=== PATIENT | female | born 1945 | race Caucasian/White ===

== ENCOUNTER 2020-09-05 09:16 | Outpatient (CLI) | payer MEDICARE, OTHER, SELFPAY ==
--- NOTE | ~2020-09-05 | US_ITS ---
EXAMINATION: US aorta DATE: 09/05/2020 09:44 INDICATION: Pulsatile abdominal mass. TECHNIQUE: Grayscale, color Doppler, and pulsed Doppler images of the aorta and common iliac arteries were obtained. COMPARISON: None. FINDINGS: The proximal aorta measures 2.5 cm.. The mid aorta measures 1.5 cm. The distal aorta measures 1.2 cm. The right common iliac artery measures 8 mm. The left common iliac artery measures 8 mm. IMPRESSION: 1. Normal abdominal aorta. Reviewed, dictated and finalized at location B. SWITCHMAN IMPRESSION: 1. Normal abdominal aorta.
== END 2020-09-05 09:17 | disposition home or self-care (01) ==
PROVIDERS: PCP Family Medicine; Visit Provider Family Medicine
DX: R19.8 Other specified symptoms and signs involving the digestive system and abdomen (principal); R19.00 Intra-abdominal and pelvic swelling, mass and lump, unspecified site
CPT/HCPCS: 76775

== ENCOUNTER 2022-03-22 09:16 | Outpatient (CLI) | payer MEDICARE, OTHER, SELFPAY ==
[2022-03-22 20:02] LABS: Alanine Aminotransferase 17 U/L (6-35); Albumin Level 4.8 g/dL (3.5-5.1); Alkaline Phosphatase 66 U/L (38-126); Anion Gap 11 mmol/L (8-16); Aspartate Amino Transferase 42 U/L (14-36); Bilirubin,Total 0.4 mg/dL (0.2-1.3); Blood Urea Nitrogen 18 mg/dL (7-17); Calcium 10.1 mg/dL (8.4-10.2); Carbon Dioxide 28 mmol/L (22-30); Chloride 99 mmol/L (98-107); Estimated Glomerular Filt Rate 54; Glucose 105 mg/dL (65-110); Potassium 4.3 mmol/L (3.4-5.0); Sodium 138 mmol/L (137-145)
== END 2022-03-22 09:17 | disposition home or self-care (01) ==
LOC: ANHGOSHLAB 09:20
PROVIDERS: PCP Family Medicine; Visit Provider Family Medicine
DX: I12.9 Hypertensive chronic kidney disease with stage 1 through stage 4 chronic kidney disease, or unspecified chronic kidney disease (principal); N18.30 Chronic kidney disease, stage 3 unspecified
CPT/HCPCS: 36415; 80053

== ENCOUNTER 2022-09-27 09:35 | Outpatient (CLI) | payer MEDICARE, OTHER, SELFPAY ==
[2022-09-27 18:45] LABS: Basophils Absolute Auto 0.1 K/mm3 (0.0-0.1); Basophils Percent Auto 1.4 % (0.2-1.2); Eosinophils Absolute Auto 0.1 K/mm3 (0-0.3); Eosinophils Percent Auto 2.2 % (0-4.4); Hematocrit 41.2 % (37.0-47.0); Immature Granulocyte Absolute 0.01 K/mm3 (0.00-0.031); Immature Granulocyte Percent A 0.2 % (0-0.5); Lymphocytes Absolute Auto 1.12 K/mm3 (0.9-3.2); Lymphocytes Percent Auto 20.3 % (18.3-44.2); Mean Corpuscular HGB Conc 31.6 g/dl (32-36); Mean Corpuscular Hemoglobin 31.6 pg (26-34); Mean Corpuscular Volume 100.2 fl (80-100); Mean Platelet Volume 10.6 fl (7.4-10.4); Monocytes Absolute Auto 0.5 K/mm3 (0.1-0.6); Monocytes Percent Auto 8.7 % (2.6-8.5); Neutrophils Absolute Auto 3.7 K/mm3 (1.3-6.7); Neutrophils Percent Auto 67.2 % (45.5-73.1); Platelet Count Result 314 k/mm3 (150-375); Red Blood Count 4.11 M/mm3 (4.2-5.4); Red Cell Distribution Width 13.2 % (11.5-14.5); White Blood Count 5.5 K/mm3 (4.5-10.0)
[2022-09-27 19:02] LABS: Vitamin D 25 Hydroxy 49.1 ng/mL
[2022-09-27 19:32] LABS: Alanine Aminotransferase 21 U/L (6-35); Albumin Level 4.9 g/dL (3.5-5.1); Alkaline Phosphatase 79 U/L (38-126); Anion Gap 11 mmol/L (8-16); Aspartate Amino Transferase 26 U/L (14-36); Bilirubin,Total 0.5 mg/dL (0.2-1.3); Blood Urea Nitrogen 16 mg/dL (7-17); Calcium 10.3 mg/dL (8.4-10.2); Carbon Dioxide 28 mmol/L (22-30); Chloride 102 mmol/L (98-107); Cholesterol 215 mg/dL (0-200); Estimated Glomerular Filt Rate 54; Glucose 110 mg/dL (65-110); HDL Direct 66 mg/dL; Potassium 4.1 mmol/L (3.4-5.0); Sodium 141 mmol/L (137-145); Triglycerides 128 mg/dL (<150)
[2022-09-27 19:43] LABS: LDL Cholesterol Direct 92 mg/dL
== END 2022-09-27 09:36 | disposition home or self-care (01) ==
LOC: ANHGOSHLAB 09:36
PROVIDERS: PCP Family Medicine; Visit Provider Nurse Practitioner Family
DX: I10 Essential (primary) hypertension (principal); E55.9 Vitamin D deficiency, unspecified
CPT/HCPCS: 36415; 80053; 80061; 82306; 84443; 85025

== ENCOUNTER 2023-03-19 08:46 | Outpatient (CLI) | payer MEDICARE, OTHER, SELFPAY ==
--- NOTE | ~2023-03-19 | DEXA_ITS ---
Bone Density Report Name: GAL JIMENEZ Age: 77 Sex: Female Ethnicity: White Date of : 1945 Indication: postmenopausal; screening for osteoporosis; Referring Provider: TOAN, HO Rich Study: Bone densitometry was performed. Exam Date: March 19, 2023 Accession number: [id number] Bone Density: Region BMD T-score Z-score Classification AP Spine(L1-L4) 1.076 0.3 2.8 Normal Femoral Neck (Left) 0.694 -1.4 0.8 Osteopenia Total Hip (Left) 0.843 -0.8 1.2 Normal Femoral Neck (Right) 0.679 -1.5 0.7 Osteopenia Total Hip (Right) 0.814 -1.1 0.9 Osteopenia Total Hip Mean 0.828 -1.0 1.1 Normal World Health Organization criteria for BMD impression classify patients as: Normal (T-score at or above -1.0), Osteopenia (T-score between -1.0 and -2.5), or Osteoporosis (T-score at or below -2.5). 10-year Fracture Risk(1): Major Osteoporotic Fracture 12% Hip Fracture 2.8% Reported Risk Factors: [place] (), Neck BMD=0.679, BMI=22.4 (1) FRAX(R) Version 3.08. Fracture probability calculated for an untreated patient. Fracture probability may be lower if the patient has received treatment. Previous Exams: Region Exam Age BMD T-score BMD Change BMD Change Date g/cm2 vs Baseline vs Previous AP Spine (L1-L4) 03/19/2023 77 1.076 0.3 0.003 (0.3%)# 0.003 (0.3%)# 04/24/2019 73 1.073 0.2 Total Hip(Left) 03/19/2023 77 0.843 -0.8 -0.059 (-6.6%) -0.059 (-6.6%) 04/24/2019 73 0.902 -0.3 Total Hip(Right) 03/19/2023 77 0.814 -1.1 -0.065 (-7.4%) -0.065 (-7.4%) 04/24/2019 73 0.879 -0.5 *Denotes significance at 95% confidence level, LSC for AP Spine = 0.022 g/cm2, LSC for Total Hip = 0.027 g/cm2 # Denotes dissimilar scan types or analysis methods Clinical Information Provided by Patient: Has used the following medications: Vitamin D, Calcium Patient maximum height was 67 Menopause Age: 51 Drinks caffeinated beverages Onset of menses at age 12 Number of children 3 Impression: The patient has low bone mass, based on the Right Femoral Neck T-score. The patient has an estimated ten-year risk of hip fracture of 2.8% and an estimated ten-year risk of major fracture of 12%, based on the WHO FRAX algorithm. No significant bone loss was observed. Discussion: BONE DENSITY IS LOW AT ONE OR MORE SKELETAL SITES. This patient's lowest T-score is low at one or more skeletal sites. It meets the World Health Organization's (
== END 2023-03-19 08:47 | disposition home or self-care (01) ==
LOC: ANHIMG 08:47
PROVIDERS: PCP Family Medicine; Visit Provider Nurse Practitioner Family
DX: Z78.0 Asymptomatic menopausal state (principal); M85.88 Other specified disorders of bone density and structure, other site
CPT/HCPCS: 77080

== ENCOUNTER 2023-04-04 10:04 | Outpatient (CLI) | payer MEDICARE, OTHER, SELFPAY ==
[2023-04-04 19:27] LABS: Alanine Aminotransferase 19 U/L (6-35); Albumin Level 4.4 g/dL (3.5-5.1); Alkaline Phosphatase 68 U/L (38-126); Anion Gap 5 mmol/L (8-16); Aspartate Amino Transferase 27 U/L (14-36); Bilirubin,Total 0.5 mg/dL (0.2-1.3); Blood Urea Nitrogen 15 mg/dL (7-17); Calcium 9.9 mg/dL (8.4-10.2); Carbon Dioxide 33 mmol/L (22-30); Chloride 103 mmol/L (98-107); Estimated Glomerular Filt Rate 54; Glucose 102 mg/dL (65-110); Potassium 4.4 mmol/L (3.4-5.0); Sodium 141 mmol/L (137-145)
== END 2023-04-04 10:05 | disposition home or self-care (01) ==
PROVIDERS: PCP Family Medicine; Visit Provider Family Medicine
DX: Z51.81 Encounter for therapeutic drug level monitoring (principal); Z79.899 Other long term (current) drug therapy; I10 Essential (primary) hypertension
CPT/HCPCS: 36415; 80053

== ENCOUNTER 2023-10-03 09:53 | Outpatient (CLI) | payer MEDICARE, OTHER, SELFPAY ==
[2023-10-03 12:17] LABS: Basophils Absolute Auto 0.1 K/mm3 (0.0-0.1); Basophils Percent Auto 0.9 % (0.2-1.2); Eosinophils Absolute Auto 0.1 K/mm3 (0-0.3); Eosinophils Percent Auto 2.4 % (0-4.4); Hematocrit 40.7 % (37.0-47.0); Hemoglobin 12.8 g/dL (12.0-15.0); Immature Granulocyte Absolute 0.01 K/mm3 (0.00-0.031); Immature Granulocyte Percent A 0.2 % (0-0.5); Lymphocytes Absolute Auto 0.96 K/mm3 (0.9-3.2); Lymphocytes Percent Auto 16.7 % (18.3-44.2); Mean Corpuscular HGB Conc 31.4 g/dl (32-36); Mean Corpuscular Hemoglobin 31.1 pg (26-34); Mean Platelet Volume 11.1 fl (7.4-10.4); Monocytes Absolute Auto 0.4 K/mm3 (0.1-0.6); Monocytes Percent Auto 6.4 % (2.6-8.5); Neutrophils Absolute Auto 4.2 K/mm3 (1.3-6.7); Neutrophils Percent Auto 73.4 % (45.5-73.1); Platelet Count Result 311 k/mm3 (150-375); Red Blood Count 4.11 M/mm3 (4.2-5.4); Red Cell Distribution Width 13.1 % (11.5-14.5); White Blood Count 5.8 K/mm3 (4.5-10.0)
[2023-10-03 12:31] LABS: Alanine Aminotransferase 16 U/L (6-35); Albumin Level 4.7 g/dL (3.5-5.1); Alkaline Phosphatase 76 U/L (38-126); Anion Gap 9 mmol/L (4-12); Aspartate Amino Transferase 44 U/L (14-36); Bilirubin,Total 0.6 mg/dL (0.2-1.3); Blood Urea Nitrogen 17 mg/dL (7-17); Calcium 10.5 mg/dL (8.4-10.2); Carbon Dioxide 28 mmol/L (22-30); Chloride 102 mmol/L (98-107); Cholesterol 177 mg/dL (0-200); Estimated Glomerular Filt Rate 54; Glucose 125 mg/dL (65-110); HDL Direct 61 mg/dL; Potassium 4.1 mmol/L (3.4-5.0); Sodium 139 mmol/L (137-145); Triglycerides 118 mg/dL (<150)
[2023-10-03 12:44] LABS: LDL Cholesterol Direct 84 mg/dL
[2023-10-03 12:56] LABS: Vitamin D 25 Hydroxy 55.9 ng/mL
[2023-10-03 13:30] LABS: Hemoglobin A1C 6.2 % (<5.7)
== END 2023-10-03 09:54 | disposition home or self-care (01) ==
LOC: ANHGOSHLAB 09:55
PROVIDERS: PCP Family Medicine; Visit Provider Family Medicine
DX: E55.9 Vitamin D deficiency, unspecified (principal); E78.5 Hyperlipidemia, unspecified; M85.80 Other specified disorders of bone density and structure, unspecified site; E53.8 Deficiency of other specified B group vitamins; R73.9 Hyperglycemia, unspecified; I10 Essential (primary) hypertension
CPT/HCPCS: 36415; 80053; 80061; 82306; 82607; 83036; 84443; 85025

== ENCOUNTER 2023-12-10 09:45 | Outpatient (CLI) | payer MEDICARE, OTHER, SELFPAY ==
--- NOTE | ~2023-12-10 | MM_ITS ---
EXAMINATION: MM screening myra BI w antonio HISTORY: Screening TECHNIQUE: Craniocaudal and mediolateral oblique 3-D tomosynthesis images were obtained and synthetic 2-D images were generated. CAD analysis was submitted and interpreted. COMPARISON: No prior mammogram is available for comparison at this institution. BREAST PARENCHYMAL COMPOSITION: Dense: The breasts are heterogeneously dense, which may obscure small masses FINDINGS: There is no evidence of suspicious mass, calcification, or architectural distortion to sugg est malignancy in either breast. There has been no suspicious interval change. IMPRESSION: 1. No mammographic evidence of malignancy. 2. Recommend routine screening mammography in one year. BI-RADS Category 1: Negative Reviewed, dictated and finalized at location B.
== END 2023-12-10 09:46 | disposition home or self-care (01) ==
PROVIDERS: PCP Family Medicine; Visit Provider Family Medicine
DX: Z12.31 Encounter for screening mammogram for malignant neoplasm of breast (principal)
CPT/HCPCS: 77063; 77067

== ENCOUNTER 2024-03-30 09:45 | Outpatient (CLI) | payer MEDICARE, OTHER, SELFPAY ==
[2024-03-30 14:55] LABS: Alanine Aminotransferase 16 U/L (6-35); Albumin Level 4.6 g/dL (3.5-5.1); Alkaline Phosphatase 63 U/L (38-126); Anion Gap 10 mmol/L (4-12); Aspartate Amino Transferase 34 U/L (14-36); Bilirubin,Total 0.6 mg/dL (0.2-1.3); Blood Urea Nitrogen 19 mg/dL (7-17); Carbon Dioxide 29 mmol/L (22-30); Chloride 98 mmol/L (98-107); Estimated Glomerular Filt Rate 53; Glucose 89 mg/dL (65-110); Potassium 4.2 mmol/L (3.4-5.0); Sodium 137 mmol/L (137-145)
[2024-03-30 15:47] LABS: Hemoglobin A1C 6.3 % (<5.7)
== END 2024-03-30 09:46 | disposition home or self-care (01) ==
LOC: ANHGOSHLAB 09:46
PROVIDERS: PCP Family Medicine; Visit Provider Family Medicine
DX: I10 Essential (primary) hypertension (principal); R73.03 Prediabetes
CPT/HCPCS: 36415; 80053; 83036

== ENCOUNTER 2024-10-06 09:28 | Outpatient (CLI) | payer MEDICARE, OTHER, SELFPAY ==
--- OUTSIDE RECORDS SUMMARY | 2024-10-06 10:06 | XMS_ITS | Clinical Summary ---
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 Gender Identity Not on file Sexual Orientation Not on file Occupation Industry Job Start Date Job End Date Not on file Not on file Not on file Not on file Plan of Treatment Health Maintenance Due Date Last Done Comments DTAP/TDAP/TD VACCINES (1 - Tdap) 12/09/1963 PNEUMOCOCCAL VACCINE 50+ YEARS (1 of 1 - PCV) 12/08/18 95 ZOSTER VACCINE (1 of 2) 1994 RSV VACCINE (60+ or ) (1 - 1-dose 75+ series) 12/09/2019 INFLUENZA VACCINE (#1) 2024 OSTEOPOROSIS SCREENING Completed 01/02/2007 Insurance MEDICARE PART A AND B [employer] [facility] Care Teams Account Manager Employee Benefits Relationship Specialty Start Date End Date Lesley Sampson MD [address] [place] [address] PCP - General Family Practice 01/13/19
--- OUTSIDE RECORDS SUMMARY | 2024-10-06 10:06 | XMS_ITS | Encounter Summary ---
Author Organization [facility] Address [address] 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
--- OUTSIDE RECORDS SUMMARY | 2024-10-06 10:06 | XMS_ITS | Encounter Summary ---
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
--- OUTSIDE RECORDS SUMMARY | 2024-10-06 10:06 | XMS_ITS | Encounter Summary ---
Author Organization [facility] [employer] [facility] Address 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
--- OUTSIDE RECORDS SUMMARY | 2024-10-06 10:06 | XMS_ITS | Encounter Summary ---
Author Organization [facility] Address 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 Gender Identity Not on file Sexual Orientation Not on file documented as of this encounter Plan of Treatment Not on file documented as of this encounter Procedures Procedure Name Priority Date/Time Associated Diagnosis Comments MAMMO SCREEN BILAT W OR WO CAD Routine 02/27/2008 10:22 AM CDT documented in this encounter Results * MAMMO DIGITAL SCREEN BILAT (02/27/2008 10:22 AM CDT) Anatomical Region Laterality Modality Breast Bilateral Other 02/27/2008 10:2 2 AM CDT Narrative 02/27/2008 11:15 AM CDT [facility] [address] [place], [place] [address] Admit Date: 02/27/2008 GAL BEAUCHAMP Sex: F Admit Prov: DANNY JOY Date: 1945 Primary Care Prov: DANNY JOY; CMRN: [id number] DANNY JOY SSN: [id number] Room: [facility] Ordering Prov: DANNY JOY Accession Number: [id number] Interpretation DIGITAL SCREENING MAMMOGRAM WITH COMPUTER-ASSISTED DIAGNOSIS Findings: The breasts were imaged with digital mammographic technique. The breast tissue is heterogeneously dense bilaterally. This lowers the sensitivity of mammography. No significant mass, malignant calcification or architectural distortion is noted. The CAD system does not highlight any suspicious areas. Summary: No mammographic evidence of malignancy. Recommendations: Bilateral yearly screening mammogram is recommended. Assessment BIRADS: 1-Negative Recommendation: Normal interval follow-up Dictated by: KEY CHI Electronically signed by: KEY CHI 02/27/2008 11:15 Transcribed: 02/27/2008 11:15 CXZ Procedure Note Key Chi - 02/27/2008 [facility] [address] [place], [place] [address] Admit Date: 02/27/2008 GAL BEAUCHAMP Sex: F Admit Prov: DANNY JOY Date: 1945 Primary Care Prov: DANNY JOY; CMRN: [id number] DANNY JOY [id number]: [id number] Room: [facility] Ordering Prov: DANNY JOY Interpretation DIGITAL SCREENING MAMMOGRAM WITH COMPUTER-ASSISTED DIAGNOSIS Findings: The breasts were imaged with digital mammographictechnique. The breast tissue is heterogeneously dense bilaterally. This lowers the sensitivity of mammography. No significant mass, malignantcalcification or architectural distortion is noted. The CAD system does not highlight any suspicious areas. Summary: No mammographic evidence of malignancy. Recommendations: Bilateral yearly screening mammogram is recommended. Assessment BIRADS: 1-Negative Recommendation: Normal interval follow-up Dictated by: KEY CHI Electronically signed by: KEY CHI 02/27/2008 11:15 Transcribed: 02/27/2008 11:15 CXZ us Danny Joy MD MAMMO ORDERABLES Suzanne l Result documented in this encounter Visit Diagnoses Diagnosis Other screening mammogram documented in this encounter Care Teams Ambulance Dispatcher Relationship Specialty Start Date End Date Lesley Sampson MD [address] [place] [phone] PCP - General Family Practice 01/13/19 documented as of this encounter
--- OUTSIDE RECORDS SUMMARY | 2024-10-06 10:06 | XMS_ITS | Encounter Summary ---
Author Organization [facility] Address [address] [place] [address] Care Team Providers Care Town Administrator Name Role Phone Lesley Sampson MD Primary Care Provider Encounter Details Date Type Department Care Team (Latest Contact Info) Description 01/02/2007 Outpatient Historical [facility] [place] [address] [facility] [address] [place] [phone] Special Screening for Osteoporosis (Primary Dx) Social History Tobacco Use Types Packs/Day Years Used Date Smoking Tobacco: Never Assessed Comments Unknown Sex and Gender Information Value Date Recorded Sex Assigned at Not on file 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
--- OUTSIDE RECORDS SUMMARY | 2024-10-06 10:06 | XMS_ITS | Encounter Summary ---
Author Organization [facility] Address [address] 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
--- OUTSIDE RECORDS SUMMARY | 2024-10-06 10:06 | XMS_ITS | Encounter Summary ---
Author Organization [facility] Address [address] [facility] Attn: Epic Prelude ADT JACK AYALA [address] Care Team Providers Care Agricultural Purchasing Agent Name Role Phone Lesley Sampson MD Primary Care Provider Encounter Details Date Type Department Care Team (Late st Contact Info) Description 02/20/1992 Outpatient Historical Domenico Morales Social History Tobacco Use Types Packs/Day Years Used Date Smoking Tobacco: Never Assessed Comments Unknown Sex and Gender Information Value Date Recorded Sex Assigned at Not on file Legal Sex Female 5:27 AM QUALITY IMPROVEMENT CONSULTANT Gender Identity Not on file Sexual Orientation Not on file documented as of this encounter Plan of Treatment Not on file documented as of this encounter Visit Diagnoses Not on filedocumented in this encounter Care Teams Agricultural Purchasing Agent Relationship Specialty Start Date End Date Lesley Sampson MD [address] [place] [phone] PCP - General Family Practice 01/13/19 documented as of this encounter
--- OUTSIDE RECORDS SUMMARY | 2024-10-06 10:06 | XMS_ITS | Encounter Summary ---
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
--- OUTSIDE RECORDS SUMMARY | 2024-10-06 10:06 | XMS_ITS | Encounter Summary ---
Author Organization [facility] Address 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
--- OUTSIDE RECORDS SUMMARY | 2024-10-06 10:06 | XMS_ITS | Encounter Summary ---
Author Organization [employer] Address 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
--- OUTSIDE RECORDS SUMMARY | 2024-10-06 10:06 | XMS_ITS | Encounter Summary ---
Author Organization [facility] Address [address] [place] [address] Care Team Providers Care Corporate Representative Name Role Phone Lesley Sampson MD Primary Care Provider Encounter Details Date Type Department Care Team (Latest Contact Info) Description 01/30/2003 Outpatient Historical HIS [facility] KISHAN Driver, [place] [address] [facility] [address] [place] [phone] SCREENING MAMM-MAILG NEOPL-OTHER (Primary Dx) Social History Tobacco Use Types Packs/Day Years Used Date Smoking Tobacco: Never Assessed Comments Unknown Sex and Gender Information Value Date Recorded Sex Assigned at Not on file 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
--- OUTSIDE RECORDS SUMMARY | 2024-10-06 10:06 | XMS_ITS | Encounter Summary ---
Author Organization [facility] Address 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 Gender Identity Not on file Sexual Orientation Not on file documented as of this encounter Plan of Treatment Not on file documented as of this encounter Procedures Procedure Name Priority Date/Time Associated Diagnosis Comments HEMOGLOBIN AND HEMATOCRIT Routine 02/17/2007 10:21 AM CDT BASIC METABOLIC PANEL Routine 02/17/2007 10:21 AM CDT documented in this encounter Results * HEMOGLOBIN AND HEMATOCRIT (02/17/2007 10:21 AM CDT) HEMOGLOBIN 12.3 11.8 - 14.8 g/dL INTERFACE SYSTEM HEMATOCRIT 36.4 35.5 - 44.0 % INTERFACE SYSTEM 02/17/2007 10:2 1 AM CDT Malka Pearson MD HEMATOLOGY ORDERABLES Edited Performing Organization Address City/[facility] Co de Phone Number INTERFACE SYSTEM Refer to clinic/hospital department * BASIC METABOLIC PANEL (02/17/2007 10:21 AM CDT) GLUCOSE 95 65 - 99 mg/dL INTERFACE SYSTEM CREATININE 0.73 0.51 - 0.95 mg/dL INTERFACE SYSTEM CALCIUM 9.4 8.4 - 10.2 mg/dL INTERFACE SYSTEM BUN 12 6 - 20 mg/dL INTERFACE SYSTEM SODIUM 143 135 - 145 mmol/L INTERFACE SYSTEM POTASSIUM 3.7 3.5 - 4.9 mmol/L INTERFACE SYSTEM CHLORIDE 105 96 - 108 mmol/L INTERFACE SYSTEM CO2 29 22 - 30 mmol/L INTERFACE SYSTEM GFR, >60 >=60 mL/min/1.7 sq meter INTERFACE SYSTEM GFR >60 >=60 mL/min/1.7 sq meter INTERFACE SYSTEM Comment: Estimated GFR rate interpretative information for both Americans and non- Americans is available on the [facility] Intranet at: [email or web address] Select: Lab Policies and Procedures Select: Reference Ranges - GFR 02/17/2007 10:2 1 AM CDT Malka Pearson MD CHEMISTRY ORDERABLES Edited Performing Organization Address [facility] Phone Number INTERFACE SYSTEM Refer to clinic/hospital department documented in this encounter Visit Diagnoses Diagnosis Other specified disorder of breast- Primary documented in this encounter Care Teams Regional Rehabilitation Director Relationship Specialty Start Date End Date Lesley Sampson MD [address] [place] [address] PCP - General Family Practice 01/13/19 documented as of this encounter
--- OUTSIDE RECORDS SUMMARY | 2024-10-06 10:06 | XMS_ITS | Encounter Summary ---
Author Organization [facility] Address 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
--- OUTSIDE RECORDS SUMMARY | 2024-10-06 10:06 | XMS_ITS | Encounter Summary ---
Author Organization [facility] Address [address] [place] [address] Care Team Providers Care Covering And Lining Supervisor Name Role Phone Lesley Sampson MD Primary Care Provider Encounter Details Date Type Department Care Team (Latest Contact Info) Description 02/24/2005 Outpatient Historical HIS [facility] KISHAN Driver, [place] [address] [facility] [address] [place] [phone] SCREENING MAMM-MAILG NEOPL NEC (Primary Dx) Social History Tobacco Use Types Packs/Day Years Used Date Smoking Tobacco: Never Assessed Comments Unknown Sex and Gender Information Value Date Recorded Sex Assigned at Not on file Legal Sex Female 5:27 AM CHRISTMAS TREE GROWER Gender Identity Not on file Sexual Orientation Not on file documented as of this encounter Plan of Treatment Not on file documented as of this encounter Visit Diagnoses Diagnosis Other screening mammogram- Primary documented in this encounter Care Teams Covering And Lining Supervisor Relationship Specialty Start Date End Date Lesley Sampson MD [address] [place] [phone] PCP - General Family Practice 01/13/19 documented as of this encounter
--- OUTSIDE RECORDS SUMMARY | 2024-10-06 10:06 | XMS_ITS | Encounter Summary ---
Author Organization [facility] Address [address] [place] [address] Care Team Providers Care Stage Technician Name Role Phone Lesley Sampson MD Primary Care Provider Encounter Details Date Type Department Care Team (Latest Contact Info) Description 11/20/2000 Outpatient Historical HIS [facility] Domenico Farmer Gynecological examination (Primary Dx) Social History Tobacco Use Types Packs/Day Years Used Date Smoking Tobacco: Never Assessed Comments Unknown Sex and Gender Information Value Date Recorded Sex Assigned at Not on file Legal Sex Female 5:27 AM CHIEF INNOVATION OFFICER Gender Identity Not on file Sexual Orientation Not on file documented as of this encounter Plan of Treatment Not on file documented as of this encounter Visit Diagnoses Diagnosis Gynecological examination- Primary documented in this encounter Care Teams Stage Technician Relationship Specialty Start Date End Date Lesley Sampson MD [address] [place] [address] PCP - General Family Practice 01/13/19 documented as of this encounter
--- OUTSIDE RECORDS SUMMARY | 2024-10-06 10:06 | XMS_ITS | Encounter Summary ---
Author Organization [employer] Address [address] [place] [address] Care Team Providers Care Bookmobile Driver Name Role Phone Lesley Sampson MD Primary Care Provider Encounter Details Date Type Department Care Team (Late st Contact Info) Description 09/19/2008 Outpatient Historical HIS [facility] Er, Authorized P NO ADDRESS ON FILE Tommy Mac MD NO ADDRESS ON FILE Social History Tobacco Use Types Packs/Day Years Used Date Smoking Tobacco: Never Assessed Comments Unknown Sex and Gender Information Value Date Recorded Sex Assigned at Not on file Legal Sex Female 5:27 AM STAFF CONSULTANT Gender Identity Not on file Sexual Orientation Not on file documented as of this encounter Plan of Treatment Not on file documented as of this encounter Procedures Procedure Name Priority Date/Time Associated Diagnosis Comments XR WRIST 2 VW RIGHT Routine 09/19/2008 9 :35 PM CDT XR WRIST 3+ VW RIGHT Routine 09/19/2008 7:35 PM CDT documented in this encounter Results * XR WRIST 2 VW RIGHT (09/19/2008 9:35 PM CDT) Anatomical Region Laterality Modality Wrist / Hand Other 09/19/2008 9:35 PM CDT Narrative 09/19/2008 10:59 PM CDT [facility] [address], [place] [address] Admit Date: 09/19/2008 GAL BEAUCHAMP Sex: F Admit Prov: ER, AUTHORIZED P Date: 1945 Primary Care Prov: PRIETO JOY; CMRN: [id number] BENITA, MARTIN Neo SSN: [id number] Room: [facility] Ordering Prov: N/A Accession Number: [id number] Interpretation RIGHT WRIST 2 VIEWS, 09/19/2008 Indication: Postreduction wrist fracture. Findings: Since the prior exam from earlier in the day, the distal radius fracture and ulnar styloid process fracture have been reduced into near anatomic alignment. An overlying plaster dressing has been placed. . Dictated by: ISABEL WALKER 09/19/2008 22:02 Electronically signed by: ISABEL WALKER 09/19/2008 22:58 Transcribed: 09/19/2008 22:25 SJ Procedure Note Isabel Walker MD - 09/19/2008 [facility] [address], [place] [address] Admit Date: 09/19/2008 GAL BEAUCHAMP Sex: F Admit Prov: ER, AUTHORIZED P Date: 1945 Primary Care Prov: BENITA PRIETO Larson; CMRN: [id number] BENITA PRIETO Larson SSN: [id number] [facility] Ordering Prov: N/A Interpretation RIGHT WRIST 2 VIEWS, 09/19/2008 Indication: Postreduction wrist fracture. Findings: Since the prior exam from earlier in the day, the distalradius fracture and ulnar styloid process fracture have been reduced intonear anatomic alignment. An overlying plaster dressing has been placed. . Dictated by: ISABEL WALKER 09/19/2008 22:02 Electronically signed by: ISABEL WALKER 09/19/2008 22:58 Transcribed: 09/19/2008 22:25 SJ us Paras Mckenzie MD DIAGNOSTIC IMAGING ORDERA BLES Final Result * XR WRIST 3+ VW RIGHT (09/19/2008 7:35 PM CDT) Anatomical Region Laterality Modality Wrist / Hand Other 09/19/2008 7:35 PM CDT Narrative 09/19/2008 8:46 PM CDT [place] [id number] [place], [place] [address] Admit Date: 09/19/2008 GAL BEAUCHAMP Sex: F Admit Prov: ER, AUTHORIZED P Date: 1945 Primary Care Prov: PRIETO JOY; CMRN: [id number] PRIETO JOY SSN: [id number] Room: ER-[facility] IMAGING SERVICES Ordering Prov: N/A Accession Number: [id number] Interpretation RIGHT WRIST 4 VIEWS, 09/19/2008 Indication: Pain, trauma. Findings: Intra-articular fracture of the distal radius demonstrates dorsal angulation and slight displacement and impaction of the distal fragment. Extension into the distal radioulnar joint is also suspected. There is a dorsally displaced ulnar styloid process fracture. Diffuse osteopenia is seen. Impression: Angulated and displaced distal radius and ulnar styloid process fractures. . Dictated by: ISABEL WALKER 09/19/2008 20:06 Electronically signed by: ISABEL WALKER 09/19/2008 20:45 Transcribed: 09/19/2008 20:43 SJ Procedure Note Isabel Walker MD - 09/19/2008 [place] [id number], [place] [address] Admit Date: 09/19/2008 GAL BEAUCHAMP Sex: F Admit Prov: ER, AUTHORIZED P Date: 1945 Primary Care Prov: PRIETO JOY; CMRN: [id number] PRIETO JOY SSN: [id number] Room: [facility] Ordering Prov: N/A Interpretation RIGHT WRIST 4 VIEWS, 09/19/2008 Indication: Pain, trauma. Findings: Intra-articular fracture of the distal radius demonstratesdorsal angulation and slight displacement and impaction of the distalfragment. Extension into the distal radioulnar joint is also suspected. Thereis a dorsally displaced ulnar styloid process fracture. Diffuse osteopeniais seen. Impression: Angulated and displaced distal radius and ulnar styloid processfractures. . Dictated by: ISABEL WALKER 09/19/2008 20:06 Electronically signed by: ISABEL WALKER 09/19/2008 20:45 Transcribed: 09/19/2008 20:43 SJ us Authorized P Er DIAGNOSTIC IMAGING ORDERABLES Fi nal Result documented in this encounter Visit Diagnoses Not on filedocumented in this encounter Care Teams Bookmobile Driver Relationship Specialty Start Date End Date Lesley Sampson MD [address] [place] [address] PCP - General Family Practice 01/13/19 documented as of this encounter
--- OUTSIDE RECORDS SUMMARY | 2024-10-06 10:06 | XMS_ITS | Encounter Summary ---
Author Organization [employer] [facility] Address [address] [place] [address] Care Team Providers Care Health And Social Care Teacher Name Role Phone Lesley Sampson MD Primary Care Provider Encounter Details Date Type Department Care Team (Latest Contact Info) Description 11/22/2001 Outpatient Historical HIS [facility] Domenico Farmer SCREENING MAMM-MAILG NEOPL-OTHER (Primary Dx) Social History Tobacco Use Types Packs/Day Years Used Date Smoking Tobacco: Never Assessed Comments Unknown Sex and Gender Information Value Date Recorded Sex Assigned at Not on file Legal Sex Female 5:27 AM MACHINE STAPLER Gender Identity Not on file Sexual Orientation Not on file documented as of this encounter Plan of Treatment Not on file documented as of this encounter Visit Diagnoses Diagnosis Other screening mammogram- Primary documented in this encounter Care Teams Health And Social Care Teacher Relationship Specialty Start Date End Date Lesley Sampson MD [address] [place] [address] PCP - General Family Practice 01/13/19 documented as of this encounter
--- OUTSIDE RECORDS SUMMARY | 2024-10-06 10:06 | XMS_ITS | Encounter Summary ---
Author Organization [facility] Address [address] [facility] Attn: Epic Prelude ADT JACK AYALA [address] Care Team Providers Care Nursing Support Worker Name Role Phone Lesley Sampson MD Primary Care Provider Encounter Details Date Type Department Care Team (Late st Contact Info) Description 02/26/1990 Outpatient Historical Domenico Morales Social History Tobacco Use Types Packs/Day Years Used Date Smoking Tobacco: Never Assessed Comments Unknown Sex and Gender Information Value Date Recorded Sex Assigned at Not on file Legal Sex Female 5:27 AM RETAIL PHARMACY MANAGER Gender Identity Not on file Sexual Orientation Not on file documented as of this encounter Plan of Treatment Not on file documented as of this encounter Visit Diagnoses Not on filedocumented in this encounter Care Teams Nursing Support Worker Relationship Specialty Start Date End Date Lesley Sampson MD [address] [place] [phone] PCP - General Family Practice 01/13/19 documented as of this encounter
--- OUTSIDE RECORDS SUMMARY | 2024-10-06 10:06 | XMS_ITS | Encounter Summary ---
Author Organization [facility] Address [address] [place] [address] Care Team Providers Care Lanolin Plant Operator Name Role Phone Lesley Sampson MD Primary Care Provider Encounter Details Date Type Department Care Team (Latest Contact Info) Description 03/06/2005 Outpatient Historical HIS [facility] KISHAN Driver, [place] [address] [facility] [address] [place] [address] DIFFUS CYSTIC MASTOPATHY (Primary Dx) Social History Tobacco Use Types Packs/Day Years Used Date Smoking Tobacco: Never Assessed Comments Unknown Sex and Gender Information Value Date Recorded Sex Assigned at Not on file Legal Sex Female 5:27 AM UNIFORM ROOM ATTENDANT Gender Identity Not on file Sexual Orientation Not on file documented as of this encounter Plan of Treatment Not on file documented as of this encounter Visit Diagnoses Diagnosis Diffuse cystic mastopathy- Primary documented in this encounter Care Teams Lanolin Plant Operator Relationship Specialty Start Date End Date Lesley Sampson MD [address] [place] [address] PCP - General Family Practice 01/13/19 documented as of this encounter
--- OUTSIDE RECORDS SUMMARY | 2024-10-06 10:06 | XMS_ITS | Encounter Summary ---
Author Organization [facility] Address [address] [place] [address] Care Team Providers Care Hardboard Factory Worker Name Role Phone Lesley Sampson MD Primary Care Provider Encounter Details Date Type Department Care Team (Latest Contact Info) Description 01/02/2007 Outpatient Historical HIS [facility] KISHAN Driver, [place] [address] [facility] [address] [place] [address] Routine General Medical Examination at a Health Care Facility (Primary Dx) Social History Tobacco Use Types Packs/Day Years Used Date Smoking Tobacco: Never Assessed Comments Unknown Sex and Gender Information Value Date Recorded Sex Assigned at Not on file Legal Sex Female 5:27 AM DIET AIDE Gender Identity Not on file Sexual Orientation Not on file documented as of this encounter Plan of Treatment Not on file documented as of this encounter Procedures Procedure Name Priority Date/Time Associated Diagnosis Comments CBC WITH DIFFERENTIAL Routine 01/02/2007 9:36 AM CDT CBC WITH DIFFERENTIAL Routine 01/02/2007 9:36 AM CDT T4 FREE Routine 01/02/2007 9:36 AM CDT IRON LEVEL Routine 01/02/2007 9:36 AM CDT LIPID PANEL Routine 01/02/2007 9:36 AM CDT COMPREHENSIVE METABOLIC PANEL Routine 01/02/2007 9:36 AM CDT documented in this encounter Results * CBC WITH DIFFERENTIAL (01/02/2007 9:36 AM CDT) NEUTROPHILS 66 45 - 70 % INTERFAC E SYSTEM LYMPHOCYTES 24 16 - 45 % INTERFAC E SYSTEM MONOCYTES 7 3 - 13 % INTERFACE SYSTEM EOSINOPHILS 3 0 - 7 % INTERFAC E SYSTEM BASOPHILS 1 0 - 2 % INTERFACE SYSTEM NEUTROPHIL ABSOLUTE 2.93 1.90 - 7.00 K/uL INTERFACE SYSTEM LYMPHOCYTE ABSOLUTE 1.06 0.70 - 4.50 K/uL INTERFACE SYSTEM MONOCYTE ABSOLUTE 0.31 0.10 - 1.30 K/uL INTERFACE SYSTEM EOSINOPHIL ABSOLUTE 0.11 0.00 - 0.70 K/uL INTERFACE SYSTEM BASOPHILS ABSOLUTE 0.04 0.00 - 0.20 K/uL INTERFACE SYSTEM 01/02/2007 9:36 AM CDT Danny Driver MD HEMATOLOGY ORDERABLES Edited Performing Organization Address City/[facility] Co de Phone Number INTERFACE SYSTEM Refer to clinic/hospital department * CBC WITH DIFFERENTIAL (01/02/2007 9:36 AM CDT) WBC 4.5 4.0 - 9.8 K/uL INTERFACE SYSTEM RBC 4.09 3.90 - 4.90 M/uL INTERFACE SYSTEM HEMOGLOBIN 12.7 11.8 - 14.8 g/dL INTERFACE SYSTEM HEMATOCRIT 38.5 35.5 - 44.0 % INTERFACE SYSTEM MCV 94.1 82.0 - 99.0 fL INTERFACE SYSTEM MCH 31.1 27.2 - 32.6 pg INTERFACE SYSTEM MCHC 33.0 31.5 - 35.5 % INTERFACE SYSTEM RDW 13.5 11.5 - 14.5 % INTERFACE SYSTEM RDW-STDEV 46.5 37.1 - 48.7 fL INTERFACE SYSTEM PLATELETS 255 140 - 350 K/uL INTERFACE SYSTEM MPV 11.3 9.3 - 12.4 fL INTERFACE SYSTEM 01/02/2007 9:36 AM CDT Danny Driver MD HEMATOLOGY ORDERABLES Edited Performing Organization Address City/[facility] Co de Phone Number INTERFACE SYSTEM Refer to clinic/hospital department * T4 FREE (01/02/2007 9:36 AM CDT) T4 FREE 1.1 0.9 - 1.7 ng/dL INTERFACE SYSTEM 01/02/2007 9:36 AM CDT Danny Driver MD CHEMISTRY ORDERABLES Edited INTERFACE SYSTEM Refer to clinic/hospital department * IRON (01/02/2007 9:36 AM CDT) IRON 92 37 - 160 ug/dL INTERFACE SYSTEM 01/02/2007 9:36 AM CDT Danny Driver MD CHEMISTRY ORDERABLES Edited Performing Organization Address [facility] de Phone Number INTERFACE SYSTEM Refer to clinic/hospital department * (ABNORMAL) LIPID PANEL (01/02/2007 9:36 AM CDT) CHOLESTEROL 171 100 - 199 mg/dL INTERFACE SYSTEM TRIGLYCERIDE 88 10 - 149 mg/dL INTERFACE SYSTEM HDL 72(H) 40 - 59 mg/dL INTERFACE SYSTEM CHOL/HDL RATIO 2.4 2.0 - 5.0 INTER FACE SYSTEM LDL CALCULATED 81 <=99 mg/dL INTERFACE SYSTEM LIPID PANEL COMMENT See Below INTERFACE SYSTEM Comment: The adult ATP and pediatric NCEP classifications for lipids are available on the [facility] Intranet at: [email or web address] Select: Lab Policies and Procedures Select: Reference Ranges - Lipids 01/02/2007 9:36 AM CDT Danny Driver MD CHEMISTRY ORDERABLES Edited INTERFACE SYSTEM Refer to clinic/hospital department * (ABNORMAL) COMPREHENSIVE METABOLIC PANEL (01/02/2007 9:36 AM CDT) GLUCOSE 115(H) 65 - 99 mg/dL INTERFACE SYSTEM CREATININE 0.70 0.51 - 0.95 mg/dL INTERFACE SYSTEM CALCIUM 9.7 8.4 - 10.2 mg/dL INTERFACE SYSTEM ALKALINE PHOSPHATASE 78 35 - 104 U/L INTERFACE SYSTEM AST 26 12 - 32 U/L INTERFACE SYSTEM ALT 30 0 - 31 U/L INTERFACE SYSTEM TOTAL PROTEIN 7.8 6.3 - 8.6 g/dL INTERFACE SYSTEM ALBUMIN 4.5 3.4 - 4.8 g/dL INTERFACE SYSTEM BILIRUBIN TOTAL 0.4 0.2 - 1.0 mg/dL INTERFACE SYSTEM BUN 13 6 - 20 mg/dL INTERFACE SYSTEM SODIUM 143 135 - 145 mmol/L INTERFACE SYSTEM POTASSIUM 4.2 3.5 - 4.9 mmol/L INTERFACE SYSTEM CHLORIDE 103 96 - 108 mmol/L INTERFACE SYSTEM CO2 27 22 - 30 mmol/L INTERFACE SYSTEM GFR, >60 >=60 mL/min/1. 7 sq meter INTERFACE SYSTEM GFR >60 >=60 mL/min/1. 7 sq meter INTERFACE SYSTEM Comment: Estimated GFR rate interpretative information for both Americans and non- Americans is available on the [facility] Intranet at: [email or web address] Select: Lab Policies and Procedures Select: Reference Ranges - GFR 01/02/2007 9:36 AM CDT Danny Driver MD CHEMISTRY ORDERABLES Edited INTERFACE SYSTEM Refer to clinic/hospital department documented in this encounter Visit Diagnoses Diagnosis Routine general medical examination at a health care facility- Primary documented in this encounter Care Teams Hardboard Factory Worker Relationship Specialty Start Date End Date Lesley Sampson MD [address] [place] [address] PCP - General Family Practice 01/13/19 documented as of this encounter
--- OUTSIDE RECORDS SUMMARY | 2024-10-06 10:06 | XMS_ITS | Encounter Summary ---
Author Organization [facility] Address [address] [place] [address] Care Team Providers Care V/Stol Landing Signal Officer Name Role Phone Lesley Sampson MD Primary Care Provider Encounter Details Date Type Department Care Team (Latest Contact Info) Description 01/22/2001 Outpatient Historical HIS [facility] Domenico Farmer Routine general medical examination at a health care facility (Primary Dx) Social History Tobacco Use Types Packs/Day Years Used Date Smoking Tobacco: Never Assessed Comments Unknown Sex and Gender Information Value Date Recorded Sex Assigned at Not on file Legal Sex Female 5:27 AM SUPERINTENDENT STEVEDORING Gender Identity Not on file Sexual Orientation Not on file documented as of this encounter Plan of Treatment Not on file documented as of this encounter Visit Diagnoses Diagnosis Routine general medical examination at a health care facility- Primary documented in this encounter Care Teams V/Stol Landing Signal Officer Relationship Specialty Start Date End Date Lesley Sampson MD [address] [place] [phone] PCP - General Family Practice 01/13/19 documented as of this encounter
--- OUTSIDE RECORDS SUMMARY | 2024-10-06 10:06 | XMS_ITS | Encounter Summary ---
Author Organization [facility] Address [address] [place] [address] Care Team Providers Care Singing Waiter Or Waitress Name Role Phone Lesley Sampson MD Primary Care Provider Encounter Details Date Type Department Care Team (Latest Contact Info) Description 01/02/2007 Outpatient Historical HIS [facility] KISHAN Driver, [place] [address] [facility] [address] [place] [address] Other Screening Mammogram (Primary Dx) Social History Tobacco Use Types Packs/Day Years Used Date Smoking Tobacco: Never Assessed Comments Unknown Sex and Gender Information Value Date Recorded Sex Assigned at Not on file Legal Sex Female 5:27 AM CORPORATE LAW ASSISTANT Gender Identity Not on file Sexual Orientation Not on file documented as of this encounter Plan of Treatment Not on file documented as of this encounter Visit Diagnoses Diagnosis Other screening mammogram- Primary documented in this encounter Care Teams Singing Waiter Or Waitress Relationship Specialty Start Date End Date Lesley Sampson MD [address] [place] [address] PCP - General Family Practice 01/13/19 documented as of this encounter
--- OUTSIDE RECORDS SUMMARY | 2024-10-06 10:06 | XMS_ITS | Encounter Summary ---
Author Organization [facility] Address [address] [place] [address] Care Team Providers Care Tax Preparer Name Role Phone Lesley Sampson MD Primary Care Provider Encounter Details Date Type Department Care Team (Latest Contact Info) Description 08/26/1999 Outpatient Historical HIS [facility] KISHAN Driver, [place] [address] [facility] [address] [place] [address] Other screening mammogram (Primary Dx) Social History Tobacco Use Types Packs/Day Years Used Date Smoking Tobacco: Never Assessed Comments Unknown Sex and Gender Information Value Date Recorded Sex Assigned at Not on file Legal Sex Female 5:27 AM PEER FINANCIAL COUNSELOR Gender Identity Not on file Sexual Orientation Not on file documented as of this encounter Plan of Treatment Not on file documented as of this encounter Visit Diagnoses Diagnosis Other screening mammogram- Primary documented in this encounter Care Teams Tax Preparer Relationship Specialty Start Date End Date Lesley Sampson MD [address] [place] [address] PCP - General Family Practice 01/13/19 documented as of this encounter
--- OUTSIDE RECORDS SUMMARY | 2024-10-06 10:06 | XMS_ITS | Encounter Summary ---
Author Organization [facility] Address [address] [place] [address] Care Team Providers Care Sales And Marketing Coordinator Name Role Phone Lesley Sampson MD Primary Care Provider Encounter Details Date Type Department Care Team (Latest Contact Info) Description 07/23/1998 Outpatient Historical HIS [facility] KISHAN Driver, [place] [address] [facility] [address] [place] [address] Other screening mammogram (Primary Dx) Social History Tobacco Use Types Packs/Day Years Used Date Smoking Tobacco: Never Assessed Comments Unknown Sex and Gender Information Value Date Recorded Sex Assigned at Not on file Legal Sex Female 5:27 AM LACTATION COORDINATOR Gender Identity Not on file Sexual Orientation Not on file documented as of this encounter Plan of Treatment Not on file documented as of this encounter Visit Diagnoses Diagnosis Other screening mammogram- Primary documented in this encounter Care Teams Sales And Marketing Coordinator Relationship Specialty Start Date End Date Lesley Sampson MD [address] [place] [address] PCP - General Family Practice 01/13/19 documented as of this encounter
--- OUTSIDE RECORDS SUMMARY | 2024-10-06 10:06 | XMS_ITS | Encounter Summary ---
Author Organization [facility] Address [address] [place] [address] Care Team Providers Care Top Lift Compresser Name Role Phone Lesley Sampson MD Primary Care Provider Encounter Details Date Type Department Care Team (Late st Contact Info) Description 01/29/2007 Inpatient Historical HIS [facility] Sonya Stokes MD [address] [facility] [address] [place] [phone] Diffuse Cystic Mastopathy (Primary Dx) Social History Tobacco Use Types Packs/Day Years Used Date Smoking Tobacco: Never Assessed Comments Unknown Sex and Gender Information Value Date Recorded Sex Assigned at Not on file Legal Sex Female 5:27 AM SPEECH THERAPY TEACHER Gender Identity Not on file Sexual Orientation Not on file documented as of this encounter Plan of Treatment Not on file documented as of this encounter Visit Diagnoses Diagnosis Diffuse cystic mastopathy- Primary documented in this encounter Care Teams Top Lift Compresser Relationship Specialty Start Date End Date Lesley Sampson MD [address] [place] [address] PCP - General Family Practice 01/13/19 documented as of this encounter
--- OUTSIDE RECORDS SUMMARY | 2024-10-06 10:06 | XMS_ITS | Encounter Summary ---
Author Organization [facility] Address [address] [place] [address] Care Team Providers Care Reading Assistant Name Role Phone Lesley Sampson MD Primary Care Provider Encounter Details Date Type Department Care Team (Latest Contact Info) Description 02/12/2004 Outpatient Historical HIS [facility] KISHAN Driver, [place] [address] [facility] [address] [place] [phone] SCREENING MAMM-MAILG NEOPL-OTHER (Primary Dx) Social History Tobacco Use Types Packs/Day Years Used Date Smoking Tobacco: Never Assessed Comments Unknown Sex and Gender Information Value Date Recorded Sex Assigned at Not on file Legal Sex Female 5:27 AM BOTANY TECHNICIAN Gender Identity Not on file Sexual Orientation Not on file documented as of this encounter Plan of Treatment Not on file documented as of this encounter Visit Diagnoses Diagnosis Other screening mammogram- Primary documented in this encounter Care Teams Reading Assistant Relationship Specialty Start Date End Date Lesley Sampson MD [address] [place] [phone] PCP - General Family Practice 01/13/19 documented as of this encounter
--- OUTSIDE RECORDS SUMMARY | 2024-10-06 10:06 | XMS_ITS | Encounter Summary ---
Author Organization [employer] [facility] Address [address] [place] [address] Care Team Providers Care Fine Arts Packer Name Role Phone Lesley Sampson MD Primary Care Provider Encounter Details Date Type Department Care Team (Latest Contact Info) Description 10/05/2000 Outpatient Historical HIS [facility] KISHAN Morales, Domenico Other screening mammogram (Primary Dx) Social History Tobacco Use Types Packs/Day Years Used Date Smoking Tobacco: Never Assessed Comments Unknown Sex and Gender Information Value Date Recorded Sex Assigned at Not on file Legal Sex Female 5:27 AM ENVIRONMENTAL SERVICES SPECIALIST Gender Identity Not on file Sexual Orientation Not on file documented as of this encounter Plan of Treatment Not on file documented as of this encounter Visit Diagnoses Diagnosis Other screening mammogram- Primary documented in this encounter Care Teams Fine Arts Packer Relationship Specialty Start Date End Date Lesley Sampson MD [address] [place] [phone] PCP - General Family Practice 01/13/19 documented as of this encounter
--- OUTSIDE RECORDS SUMMARY | 2024-10-06 10:06 | XMS_ITS | Encounter Summary ---
Author Organization [facility] Address [address] [place] [address] Care Team Providers Care Client Service Consultant Name Role Phone Lesley Sampson MD Primary Care Provider Encounter Details Date Type Department Care Team (Late st Contact Info) Description 02/10/2007 Outpatient Historical HIS [facility] Malka Reyes MD [address] [place] [address] [address] [address] Diffuse Cystic Mastopathy (Primary Dx) Social History Tobacco Use Types Packs/Day Years Used Date Smoking Tobacco: Never Assessed Comments Unknown Sex and Gender Information Value Date Recorded Sex Assigned at Not on file Legal Sex Female 5:[address] Gender Identity Not on file Sexual Orientation Not on file documented as of this encounter Plan of Treatment Not on file documented as of this encounter Visit Diagnoses Diagnosis Diffuse cystic mastopathy- Primary documented in this encounter Care Teams Client Service Consultant Relationship Specialty Start Date End Date Lesley Sampson MD [address] [place] [phone] PCP - General Family Practice 01/13/19 documented as of this encounter
--- OUTSIDE RECORDS SUMMARY | 2024-10-06 10:06 | XMS_ITS | Encounter Summary ---
Author Organization [facility] Address [address] [facility] Attn: Epic Prelude ADT JACK AYALA [address] Care Team Providers Care Content Creation Manager Name Role Phone Lesley Sampson MD Primary Care Provider Encounter Details Date Type Department Care Team (Late st Contact Info) Description 05/09/1994 Outpatient Historical Domenico Morales Social History Tobacco Use Types Packs/Day Years Used Date Smoking Tobacco: Never Assessed Comments Unknown Sex and Gender Information Value Date Recorded Sex Assigned at Not on file Legal Sex Female 5:27 AM BOOK STORE ASSOCIATE Gender Identity Not on file Sexual Orientation Not on file documented as of this encounter Plan of Treatment Not on file documented as of this encounter Visit Diagnoses Not on filedocumented in this encounter Care Teams Content Creation Manager Relationship Specialty Start Date End Date Lesley Sampson MD [address] [place] [phone] PCP - General Family Practice 01/13/19 documented as of this encounter
[2024-10-06 13:58] LABS: Basophils Absolute Auto 0.1 K/mm3 (0.0-0.1); Basophils Percent Auto 1.3 % (0.2-1.2); Eosinophils Absolute Auto 0.1 K/mm3 (0-0.3); Eosinophils Percent Auto 2.1 % (0-4.4); Hematocrit 37.8 % (37.0-47.0); Hemoglobin 12.2 g/dL (12.0-15.0); Immature Granulocyte Absolute 0.02 K/mm3 (0.00-0.031); Immature Granulocyte Percent A 0.4 % (0-0.5); Lymphocytes Absolute Auto 0.89 K/mm3 (0.9-3.2); Lymphocytes Percent Auto 16.9 % (18.3-44.2); Mean Corpuscular HGB Conc 32.3 g/dl (32-36); Mean Corpuscular Hemoglobin 31.8 pg (26-34); Mean Corpuscular Volume 98.4 fl (80-100); Mean Platelet Volume 10.6 fl (7.4-10.4); Monocytes Absolute Auto 0.4 K/mm3 (0.1-0.6); Monocytes Percent Auto 7.6 % (2.6-8.5); Neutrophils Absolute Auto 3.8 K/mm3 (1.3-6.7); Neutrophils Percent Auto 71.7 % (45.5-73.1); Platelet Count Result 319 k/mm3 (150-375); Red Blood Count 3.84 M/mm3 (4.2-5.4); Red Cell Distribution Width 13.2 % (11.5-14.5); White Blood Count 5.3 K/mm3 (4.5-10.0)
[2024-10-06 14:30] LABS: Alanine Aminotransferase 18 U/L (6-35); Albumin Level 4.6 g/dL (3.5-5.1); Alkaline Phosphatase 81 U/L (38-126); Anion Gap 9 mmol/L (4-12); Aspartate Amino Transferase 44 U/L (14-36); Bilirubin,Total 0.5 mg/dL (0.2-1.3); Blood Urea Nitrogen 16 mg/dL (7-17); Carbon Dioxide 28 mmol/L (22-30); Chloride 104 mmol/L (98-107); Cholesterol 190 mg/dL (0-200); Estimated Glomerular Filt Rate 54; Glucose 108 mg/dL (65-110); HDL Direct 68 mg/dL; Potassium 4.3 mmol/L (3.4-5.0); Sodium 141 mmol/L (137-145); Triglycerides 102 mg/dL (<150)
[2024-10-06 14:40] LABS: LDL Cholesterol Direct 75 mg/dL
[2024-10-06 15:19] LABS: Vitamin D 25 Hydroxy 36.5 ng/mL
[2024-10-06 17:35] LABS: Hemoglobin A1C 5.9 % (<5.7)
== END 2024-10-06 09:29 | disposition home or self-care (01) ==
LOC: ANHGOSHLAB 09:28
PROVIDERS: PCP Family Medicine; Visit Provider Family Medicine
DX: E78.5 Hyperlipidemia, unspecified (principal); I10 Essential (primary) hypertension; R73.03 Prediabetes; E53.8 Deficiency of other specified B group vitamins; E55.9 Vitamin D deficiency, unspecified
CPT/HCPCS: 36415; 80053; 80061; 82306; 82607; 83036; 84443; 85025

== ENCOUNTER 2025-04-12 10:07 | Outpatient (CLI) | payer MEDICARE, OTHER, SELFPAY ==
--- OUTSIDE RECORDS SUMMARY | 2025-04-12 11:15 | XMS_ITS | Encounter Summary ---
Author Organization [facility] Address [address] [place] [address] Care Team Providers Care Waste Water Treatment Plant Operator Name Role Phone Lesley Sampson MD Primary Care Provider Encounter Details Date Type Department Care Team (Latest Contact Info) Description 01/20/2007 Outpatient Historical HIS [facility] KISHAN Driver, [place] [address] [facility] [address] [place] [phone] Mammographic Microcalcification (Primary Dx) Social History Tobacco Use Types Packs/Day Years Used Date Smoking Tobacco: Never Assessed Comments Unknown Sex and Gender Information Value Date Recorded Sex Assigned at Not on file Legal Sex Female 5:27 AM SURFACE GRINDING MACHINE HAND Gender Identity Not on file Sexual Orientation Not on file documented as of this encounter Plan of Treatment Not on file documented as of this encounter Visit Diagnoses Diagnosis Mammographic microcalcification- Primary documented in this encounter Care Teams Waste Water Treatment Plant Operator Relationship Specialty Start Date End Date Lesley Sampson MD [address] [place] [phone] PCP - General Family Practice 01/13/19 documented as of this encounter
--- OUTSIDE RECORDS SUMMARY | 2025-04-12 11:15 | XMS_ITS | Encounter Summary ---
Author Organization [facility] Address [address] [place] [address] Care Team Providers Care Box Sealing Machine Catcher Name Role Phone Lesley Sampson MD Primary Care Provider Encounter Details Date Type Department Care Team (Latest Contact Info) Description 01/02/2007 Outpatient Historical HIS [facility] KISHAN Driver, [place] [address] [facility] [address] [place] [address] Other Screening Mammogram (Primary Dx) Social History Tobacco Use Types Packs/Day Years Used Date Smoking Tobacco: Never Assessed Comments Unknown Sex and Gender Information Value Date Recorded Sex Assigned at Not on file Legal Sex Female 5:27 AM CLOCK SMITH Gender Identity Not on file Sexual Orientation Not on file documented as of this encounter Plan of Treatment Not on file documented as of this encounter Visit Diagnoses Diagnosis Other screening mammogram- Primary documented in this encounter Care Teams Box Sealing Machine Catcher Relationship Specialty Start Date End Date Lesley Sampson MD [address] [place] [address] PCP - General Family Practice 01/13/19 documented as of this encounter
--- OUTSIDE RECORDS SUMMARY | 2025-04-12 11:15 | XMS_ITS | Encounter Summary ---
Author Organization [employer] Address [address] [place] [address] Care Team Providers Care Fabrication Specialist Name Role Phone Lesley Sampson MD Primary Care Provider Encounter Details Date Type Department Care Team (Latest Contact Info) Description 01/02/2007 Outpatient Historical [facility] [place] [address] [facility] [address] [place] [address] Special Screening for Osteoporosis (Primary Dx) Social History Tobacco Use Types Packs/Day Years Used Date Smoking Tobacco: Never Assessed Comments Unknown Sex and Gender Information Value Date Recorded Sex Assigned at Not on file Legal Sex Female 5:27 AM DOPE HOUSE OPERATOR HELPER Gender Identity Not on file Sexual Orientation Not on file documented as of this encounter Plan of Treatment Not on file documented as of this encounter Visit Diagnoses Diagnosis Special screening for osteoporosis- Primary documented in this encounter Care Teams Fabrication Specialist Relationship Specialty Start Date End Date Lesley Sampson MD [address] [place] [phone] PCP - General Family Practice 01/13/19 documented as of this encounter
--- OUTSIDE RECORDS SUMMARY | 2025-04-12 11:15 | XMS_ITS | Encounter Summary ---
Author Organization [facility] Address [address] [place] [address] Care Team Providers Care Nurse Outreach Case Manager Name Role Phone Lesley Sampson MD Primary Care Provider Encounter Details Date Type Department Care Team (Late st Contact Info) Description 01/29/2007 Inpatient Historical HIS [facility] Sonya Stokes MD [address] [facility] [address] [place] [phone] Diffuse Cystic Mastopathy (Primary Dx) Social History Tobacco Use Types Packs/Day Years Used Date Smoking Tobacco: Never Assessed Comments Unknown Sex and Gender Information Value Date Recorded Sex Assigned at Not on file Legal Sex Female 5:27 AM PLUG OVERWRAP MACHINE TENDER Gender Identity Not on file Sexual Orientation Not on file documented as of this encounter Plan of Treatment Not on file documented as of this encounter Visit Diagnoses Diagnosis Diffuse cystic mastopathy- Primary documented in this encounter Care Teams Nurse Outreach Case Manager Relationship Specialty Start Date End Date Lesley Sampson MD [address] [place] [address] PCP - General Family Practice 01/13/19 documented as of this encounter
--- OUTSIDE RECORDS SUMMARY | 2025-04-12 11:16 | XMS_ITS | Encounter Summary ---
Author Organization [facility] Address [address] [place] [address] Care Team Providers Care Electrical Products Engineer Name Role Phone Lesley Sampson MD Primary Care Provider Encounter Details Date Type Department Care Team (Latest Contact Info) Description 08/26/1999 Outpatient Historical HIS [facility] KISHAN Driver, [place] [address] [facility] [address] [place] [address] Other screening mammogram (Primary Dx) Social History Tobacco Use Types Packs/Day Years Used Date Smoking Tobacco: Never Assessed Comments Unknown Sex and Gender Information Value Date Recorded Sex Assigned at Not on file Legal Sex Female 5:27 AM HEALTHCARE ASSOCIATE Gender Identity Not on file Sexual Orientation Not on file documented as of this encounter Plan of Treatment Not on file documented as of this encounter Visit Diagnoses Diagnosis Other screening mammogram- Primary documented in this encounter Care Teams Electrical Products Engineer Relationship Specialty Start Date End Date Lesley Sampson MD [address] [place] [address] PCP - General Family Practice 01/13/19 documented as of this encounter
--- OUTSIDE RECORDS SUMMARY | 2025-04-12 11:16 | XMS_ITS | Encounter Summary ---
Author Organization [employer] [facility] Address [address] [place] [address] Care Team Providers Care Isobutylene Operator Chief Name Role Phone Lesley Sampson MD Primary Care Provider Encounter Details Date Type Department Care Team (Latest Contact Info) Description 10/05/2000 Outpatient Historical HIS [facility] KISHAN Morales, Domenico Other screening mammogram (Primary Dx) Social History Tobacco Use Types Packs/Day Years Used Date Smoking Tobacco: Never Assessed Comments Unknown Sex and Gender Information Value Date Recorded Sex Assigned at Not on file Legal Sex Female 5:27 AM STORE PROTECTION SPECIALIST Gender Identity Not on file Sexual Orientation Not on file documented as of this encounter Plan of Treatment Not on file documented as of this encounter Visit Diagnoses Diagnosis Other screening mammogram- Primary documented in this encounter Care Teams Isobutylene Operator Chief Relationship Specialty Start Date End Date Lesley Sampson MD [address] [place] [phone] PCP - General Family Practice 01/13/19 documented as of this encounter
--- OUTSIDE RECORDS SUMMARY | 2025-04-12 11:16 | XMS_ITS | Encounter Summary ---
Author Organization [employer] [facility] Address [address] [place] [address] Care Team Providers Care Clinical Dental Technician Name Role Phone Lesley Sampson MD Primary Care Provider Encounter Details Date Type Department Care Team (Latest Contact Info) Description 11/20/2000 Outpatient Historical HIS [facility] Domenico Farmer Gynecological examination (Primary Dx) Social History Tobacco Use Types Packs/Day Years Used Date Smoking Tobacco: Never Assessed Comments Unknown Sex and Gender Information Value Date Recorded Sex Assigned at Not on file Legal Sex Female 5:27 AM RESPIRATORY CARE PROGRAM DIRECTOR Gender Identity Not on file Sexual Orientation Not on file documented as of this encounter Plan of Treatment Not on file documented as of this encounter Visit Diagnoses Diagnosis Gynecological examination- Primary documented in this encounter Care Teams Clinical Dental Technician Relationship Specialty Start Date End Date Lesley Sampson MD [address] [place] [address] PCP - General Family Practice 01/13/19 documented as of this encounter
--- OUTSIDE RECORDS SUMMARY | 2025-04-12 11:16 | XMS_ITS | Encounter Summary ---
Author Organization [facility] Address [address] [facility] Attn: Epic Prelude ADT JACK AYALA [address] Care Team Providers Care Corporate Travel Counselor Name Role Phone Lesley Sampson MD Primary Care Provider Encounter Details Date Type Department Care Team (Late st Contact Info) Description 02/20/1992 Outpatient Historical Domenico Morales Social History Tobacco Use Types Packs/Day Years Used Date Smoking Tobacco: Never Assessed Comments Unknown Sex and Gender Information Value Date Recorded Sex Assigned at Not on file Legal Sex Female 5:27 AM MEDICAL INSURANCE CLERK Gender Identity Not on file Sexual Orientation Not on file documented as of this encounter Plan of Treatment Not on file documented as of this encounter Visit Diagnoses Not on filedocumented in this encounter Care Teams Corporate Travel Counselor Relationship Specialty Start Date End Date Lesley Sampson MD [address] [place] [phone] PCP - General Family Practice 01/13/19 documented as of this encounter
--- OUTSIDE RECORDS SUMMARY | 2025-04-12 11:16 | XMS_ITS | Encounter Summary ---
Author Organization [facility] Address [address] [place] [address] Care Team Providers Care Operations Program Manager Name Role Phone Lesley Sampson MD Primary Care Provider Encounter Details Date Type Department Care Team (Latest Contact Info) Description 02/12/[address] [facility] KISHAN Driver, [place] [address] [facility] [address] [place] [address] SCREENING MAMM-MAILG NEOPL-OTHER (Primary Dx) Social History Tobacco Use Types Packs/Day Years Used Date Smoking Tobacco: Never Assessed Comments Unknown Sex and Gender Information Value Date Recorded Sex Assigned at Not on file Legal Sex Female 5:27 AM SETTER HELPER Gender Identity Not on file Sexual Orientation Not on file documented as of this encounter Plan of Treatment Not on file documented as of this encounter Visit Diagnoses Diagnosis Other screening mammogram- Primary documented in this encounter Care Teams Operations Program Manager Relationship Specialty Start Date End Date Lesley Sampson MD [address] [place] [phone] PCP - General Family Practice 01/13/19 documented as of this encounter
--- OUTSIDE RECORDS SUMMARY | 2025-04-12 11:16 | XMS_ITS | Encounter Summary ---
Author Organization [facility] Address [address] [place] [address] Care Team Providers Care Director Pharmacology Name Role Phone Lesley Sampson MD Primary Care Provider Encounter Details Date Type Department Care Team (Latest Contact Info) Description 02/24/2005 Outpatient Historical HIS [facility] KISHAN Driver, [place] [address] [facility] [address] [place] [address] SCREENING MAMM-MAILG NEOPL NEC (Primary Dx) Social History Tobacco Use Types Packs/Day Years Used Date Smoking Tobacco: Never Assessed Comments Unknown Sex and Gender Information Value Date Recorded Sex Assigned at Not on file Legal Sex Female 5:27 AM HUC Gender Identity Not on file Sexual Orientation Not on file documented as of this encounter Plan of Treatment Not on file documented as of this encounter Visit Diagnoses Diagnosis Other screening mammogram- Primary documented in this encounter Care Teams Director Pharmacology Relationship Specialty Start Date End Date Lesley Sampson MD [address] [place] [phone] PCP - General Family Practice 01/13/19 documented as of this encounter
--- OUTSIDE RECORDS SUMMARY | 2025-04-12 11:16 | XMS_ITS | Encounter Summary ---
Author Organization [employer] [facility] Address [address] [place] [address] Care Team Providers Care Tie Buyer Name Role Phone Lesley Sampson MD Primary Care Provider Encounter Details Date Type Department Care Team (Latest Contact Info) Description 11/22/[address] [facility] Domenico Farmer SCREENING MAMM-MAILG NEOPL-OTHER (Primary Dx) Social History Tobacco Use Types Packs/Day Years Used Date Smoking Tobacco: Never Assessed Comments Unknown Sex and Gender Information Value Date Recorded Sex Assigned at Not on file Legal Sex Female 5:27 AM NET COORDINATOR Gender Identity Not on file Sexual Orientation Not on file documented as of this encounter Plan of Treatment Not on file documented as of this encounter Visit Diagnoses Diagnosis Other screening mammogram- Primary documented in this encounter Care Teams Tie Buyer Relationship Specialty Start Date End Date Lesley Sampson MD [address] [place] [phone] PCP - General Family Practice 01/13/19 documented as of this encounter
--- OUTSIDE RECORDS SUMMARY | 2025-04-12 11:16 | XMS_ITS | Encounter Summary ---
Author Organization [facility] Address [address] [place] [address] Care Team Providers Care Coil Inspector Name Role Phone Lesley Sampson MD Primary Care Provider Encounter Details Date Type Department Care Team (Latest Contact Info) Description 01/22/2001 Outpatient Historical HIS [facility] Domenico Farmer Routine general medical examination at a health care facility (Primary Dx) Social History Tobacco Use Types Packs/Day Years Used Date Smoking Tobacco: Never Assessed Comments Unknown Sex and Gender Information Value Date Recorded Sex Assigned at Not on file Legal Sex Female 5:27 AM HUB BANDER Gender Identity Not on file Sexual Orientation Not on file documented as of this encounter Plan of Treatment Not on file documented as of this encounter Visit Diagnoses Diagnosis Routine general medical examination at a health care facility- Primary documented in this encounter Care Teams Coil Inspector Relationship Specialty Start Date End Date Lesley Sampson MD [address] [place] [phone] PCP - General Family Practice 01/13/19 documented as of this encounter
--- OUTSIDE RECORDS SUMMARY | 2025-04-12 11:16 | XMS_ITS | Encounter Summary ---
Author Organization [facility] Address [address] [place] [address] Care Team Providers Care Assorter Name Role Phone Lesley Sampson MD Primary Care Provider Encounter Details Date Type Department Care Team (Latest Contact Info) Description 01/02/2007 Outpatient Historical HIS [facility] KISHAN Driver, [place] [address] [facility] [address] [place] [address] Routine General Medical Examination at a Health Care Facility (Primary Dx) Social History Tobacco Use Types Packs/Day Years Used Date Smoking Tobacco: Never Assessed Comments Unknown Sex and Gender Information Value Date Recorded Sex Assigned at Not on file Legal Sex Female 5:27 AM LABORER SHIPYARD Gender Identity Not on file Sexual Orientation [...] MD HEMATOLOGY ORDERABLES Edited Performing Organization Address City/[facility] Co de Phone Number INTERFACE [...] MD HEMATOLOGY ORDERABLES Edited Performing Organization Address City/[facility] Co de Phone Number INTERFACE [...] MD CHEMISTRY ORDERABLES Edited Performing Organization Address [facility] de Phone Number INTERFACE SYSTEM Refer [...] classifications for lipids are available on the [facility] Intranet at: [email or web address] Select: Lab Policies and Procedures Select: [...] and non- Americans is available on the [facility] Intranet at: [email or web address] Select: Lab Policies and Procedures Select: Reference Ranges - GFR 01/02/2007 9:36 AM CDT Danny Driver MD CHEMISTRY ORDERABLES Edited INTERFACE SYSTEM Refer to clinic/hospital department documented in this encounter Visit Diagnoses Diagnosis Routine general medical examination at a health care facility- Primary documented in this encounter Care Teams Assorter Relationship Specialty Start Date End Date Lesley Sampson MD [address] [place] [address] PCP - General Family Practice 01/13/19 documented as of this encounter
--- OUTSIDE RECORDS SUMMARY | 2025-04-12 11:16 | XMS_ITS | Encounter Summary ---
Author Organization [facility] Address [address] [facility] Attn: Epic Prelude ADT JACK AYALA [address] Care Team Providers Care Cross Country Truck Driver Name Role Phone Lesley Sampson MD Primary Care Provider Encounter Details Date Type Department Care Team (Late st Contact Info) Description 05/09/1994 Outpatient Historical Domenico Morales Social History Tobacco Use Types Packs/Day Years Used Date Smoking Tobacco: Never Assessed Comments Unknown Sex and Gender Information Value Date Recorded Sex Assigned at Not on file Legal Sex Female 5:27 AM ELEVATOR ADJUSTER Gender Identity Not on file Sexual Orientation Not on file documented as of this encounter Plan of Treatment Not on file documented as of this encounter Visit Diagnoses Not on filedocumented in this encounter Care Teams Cross Country Truck Driver Relationship Specialty Start Date End Date Lesley Sampson MD [address] [place] [phone] PCP - General Family Practice 01/13/19 documented as of this encounter
--- OUTSIDE RECORDS SUMMARY | 2025-04-12 11:16 | XMS_ITS | Encounter Summary ---
Author Organization [facility] Address [address] [facility] Attn: Epic Prelude ADT JACK AYALA [phone] Care Team Providers Care Inspector And Clipper Name Role Phone Lesley Sampson MD Primary [...] on file Legal Sex Female 5:27 AM TEMPLATE INSPECTOR Gender Identity Not on file Sexual Orientation Not on file documented as of this encounter Plan of Treatment Not on file documented as of this encounter Visit Diagnoses Not on filedocumented in this encounter Care Teams Inspector And Clipper Relationship Specialty Start Date End Date Lesley Sampson MD [address] [place] [phone] PCP - General Family Practice 01/13/19 documented as of this encounter
--- OUTSIDE RECORDS SUMMARY | 2025-04-12 11:16 | XMS_ITS | Encounter Summary ---
Author Organization [employer] Address [address] [place] [address] Care Team Providers Care Roof Assembler Name Role Phone Lesley Sampson MD Primary [...] on file Legal Sex Female 5:27 AM FABRIC WORKER LEADER Gender Identity Not on file Sexual Orientation Not on file documented as of this encounter Plan of Treatment Not on file documented as of this encounter Visit Diagnoses Diagnosis Laboratory examination- Primary documented in this encounter Care Teams Roof Assembler Relationship Specialty Start Date End Date Lesley Sampson MD [address] [place] [address] PCP - General Family Practice 01/13/19 documented as of this encounter
--- OUTSIDE RECORDS SUMMARY | 2025-04-12 11:16 | XMS_ITS | Encounter Summary ---
Author Organization [facility] Address [address] [place] [address] Care Team Providers Care Freight And Passenger Agent Name Role Phone Lesley Sampson MD Primary Care Provider Encounter Details Date Type Department Care Team (Latest Contact Info) Description 07/23/1998 Outpatient Historical [facility] KISHAN Driver, [place] [address] [facility] [address] [place] [address] Other screening mammogram (Primary Dx) Social History Tobacco Use Types Packs/Day Years Used Date Smoking Tobacco: Never Assessed Comments Unknown Sex and Gender Information Value Date Recorded Sex Assigned at Not on file Legal Sex Female 5:27 AM CERTIFIED VEHICLE FIRE INVESTIGATOR Gender Identity Not on file Sexual Orientation Not on file documented as of this encounter Plan of Treatment Not on file documented as of this encounter Visit Diagnoses Diagnosis Other screening mammogram- Primary documented in this encounter Care Teams Freight And Passenger Agent Relationship Specialty Start Date End Date Lesley Sampson MD [address] [place] [address] PCP - General Family Practice 01/13/19 documented as of this encounter
--- OUTSIDE RECORDS SUMMARY | 2025-04-12 11:16 | XMS_ITS | Encounter Summary ---
Author Organization [facility] Address 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 Gender Identity Not on file Sexual Orientation [...] AM CDT Narrative 02/27/2008 11:15 AM CDT [facility] [address] [place], [place] [address] Admit Date: 02/27/2008 GAL BEAUCHAMP Sex: F Admit Prov: DANNY JOY Date: 1945 Primary Care Prov: DANNY JOY; CMRN: [id number] DANNY JOY SSN: [id number] Room: [facility] Ordering Prov: DANNY JOY Accession Number: [id number] Interpretation DIGITAL SCREENING MAMMOGRAM WITH COMPUTER-ASSISTED DIAGNOSIS [...] CXZ Procedure Note Key Chi - 02/27/2008 [facility] [address] [place], [place] [address] Admit Date: 02/27/2008 GAL BEAUCHAMP Sex: F Admit Prov: DANNY JOY Date: 1945 Primary Care Prov: DANNY JOY; CMRN: [id number] DANNY JOY SSN: [id number] Room: [facility] Ordering Prov: DANNY JOY Interpretation [...] mammogram documented in this encounter Care Teams Fast Brim Pouncer Relationship Specialty Start Date End Date Lesley Sampson MD [address] [place] [phone] PCP - General Family Practice 01/13/19 documented as of this encounter
--- OUTSIDE RECORDS SUMMARY | 2025-04-12 11:16 | XMS_ITS | Encounter Summary ---
Author Organization [facility] Address [address] [facility] Attn: Epic Prelude ADT JACK AYALA [phone] Care Team Providers Care Phlebotomy Program Coordinator Name Role Phone Lesley Sampson MD Primary Care Provider Encounter Details Date Type Department Care Team (Late st Contact Info) Description 02/26/1990 Outpatient Historical Domenico Morales Social History Tobacco Use Types Packs/Day Years Used Date Smoking Tobacco: Never Assessed Comments Unknown Sex and Gender Information Value Date Recorded Sex Assigned at Not on file Legal Sex Female 5:27 AM RN EMERGENCY Gender Identity Not on file Sexual Orientation Not on file documented as of this encounter Plan of Treatment Not on file documented as of this encounter Visit Diagnoses Not on filedocumented in this encounter Care Teams Phlebotomy Program Coordinator Relationship Specialty Start Date End Date Lesley Sampson MD [address] [place] [phone] PCP - General Family Practice 01/13/19 documented as of this encounter
--- OUTSIDE RECORDS SUMMARY | 2025-04-12 11:16 | XMS_ITS | Encounter Summary ---
Author Organization 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
--- OUTSIDE RECORDS SUMMARY | 2025-04-12 11:16 | XMS_ITS | Encounter Summary ---
Author Organization [employer] Address [address] [place] [address] Care Team Providers Care Bridge Toll Collector Name Role Phone Lesley Sampson MD Primary Care Provider Encounter Details Date Type Department Care Team (Late st Contact Info) Description 02/18/2007 Outpatient Historical [facility] Malka Pearson MD [address] [place] [address] [address] [address] Other Specified Disorder of Breast (Primary Dx) Social History Tobacco Use Types Packs/Day Years Used Date Smoking Tobacco: Never Assessed Comments Unknown Sex and Gender Information Value Date Recorded Sex Assigned at Not on file Legal Sex Female 5:27 AM TON CYLINDER INSPECTOR Gender Identity Not on file Sexual [...] MD HEMATOLOGY ORDERABLES Edited Performing Organization Address City/[facility] Co de Phone Number INTERFACE [...] and non- Americans is available on the [facility] Intranet at: [email or web address] Select: Lab Policies and Procedures Select: Reference Ranges - GFR 02/17/2007 10:2 1 AM CDT Malka Pearson MD CHEMISTRY ORDERABLES Edited Performing Organization Address [facility] Phone Number INTERFACE SYSTEM Refer to clinic/hospital department documented in this encounter Visit Diagnoses Diagnosis Other specified disorder of breast- Primary documented in this encounter Care Teams Bridge Toll Collector Relationship Specialty Start Date End Date Lesley Sampson MD [address] [place] [address] PCP - General Family Practice 01/13/19 documented as of this encounter
--- OUTSIDE RECORDS SUMMARY | 2025-04-12 11:16 | XMS_ITS | Clinical Summary ---
Author Organization 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
--- OUTSIDE RECORDS SUMMARY | 2025-04-12 11:16 | XMS_ITS | Encounter Summary ---
Author Organization [facility] Address [address] [place] [address] Care Team Providers Care Gateman Name Role Phone Lesley Sampson MD Primary Care Provider Encounter Details Date Type Department Care Team (Latest Contact Info) Description 01/30/2003 Outpatient Historical HIS [facility] KISHAN Driver, [place] [address] [facility] [address] [place] [address] SCREENING MAMM-MAILG NEOPL-OTHER (Primary Dx) Social History Tobacco Use Types Packs/Day Years Used Date Smoking Tobacco: Never Assessed Comments Unknown Sex and Gender Information Value Date Recorded Sex Assigned at Not on file Legal Sex Female 5:27 AM DIRECTOR OF OPTIMIZATION Gender Identity Not on file Sexual Orientation Not on file documented as of this encounter Plan of Treatment Not on file documented as of this encounter Visit Diagnoses Diagnosis Other screening mammogram- Primary documented in this encounter Care Teams Gateman Relationship Specialty Start Date End Date Lesley Sampson MD [address] [place] [phone] PCP - General Family Practice 01/13/19 documented as of this encounter
--- OUTSIDE RECORDS SUMMARY | 2025-04-12 11:16 | XMS_ITS | Encounter Summary ---
Author Organization [employer] Address [address] [place] [address] Care Team Providers Care Septic Tank Servicer Name Role Phone Lesley Sampson MD Primary [...] on file Legal Sex Female 5:27 AM TITLE INSPECTOR Gender Identity Not on file Sexual Orientation Not on file documented as of this encounter Plan of Treatment Not on file documented as of this encounter Visit Diagnoses Diagnosis Gynecological examination- Primary documented in this encounter Care Teams Septic Tank Servicer Relationship Specialty Start Date End Date Lesley Sampson MD [address] [place] [address] PCP - General Family Practice 01/13/19 documented as of this encounter
--- OUTSIDE RECORDS SUMMARY | 2025-04-12 11:16 | XMS_ITS | Encounter Summary ---
Author Organization [facility] Address [address] [place] [address] Care Team Providers Care Applications System Analyst Name Role Phone Lesley Sampson MD Primary Care Provider Encounter Details Date Type Department Care Team (Latest Contact Info) Description 03/06/2005 Outpatient Historical HIS [facility] KISH[place] Driver, [place] [address] [facility] [address] [place] [address] DIFFUS CYSTIC MASTOPATHY (Primary Dx) Social History Tobacco Use Types Packs/Day Years Used Date Smoking Tobacco: Never Assessed Comments Unknown Sex and Gender Information Value Date Recorded Sex Assigned at Not on file 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
--- OUTSIDE RECORDS SUMMARY | 2025-04-12 11:16 | XMS_ITS | Encounter Summary ---
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
--- OUTSIDE RECORDS SUMMARY | 2025-04-12 11:16 | XMS_ITS | Encounter Summary ---
Author Organization [facility] Address [address] [place] [address] Care Team Providers Care Accounting Advisory Services Manager Name Role Phone Lesley Sampson MD Primary Care Provider Encounter Details Date Type Department Care Team (Late st Contact Info) Description 02/10/2007 Outpatient Historical HIS [facility] Malka Reyes MD [address] [place] [address] [address] [address] Diffuse Cystic Mastopathy (Primary Dx) Social History Tobacco Use Types Packs/Day Years Used Date Smoking Tobacco: Never Assessed Comments Unknown Sex and Gender Information Value Date Recorded Sex Assigned at Not on file Legal Sex Female 5:27 AM CONTINUUM OF CARE MANAGER Gender Identity Not on file Sexual Orientation Not on file documented as of this encounter Plan of Treatment Not on file documented as of this encounter Visit Diagnoses Diagnosis Diffuse cystic mastopathy- Primary documented in this encounter Care Teams Accounting Advisory Services Manager Relationship Specialty Start Date End Date Lesley Sampson MD [address] [place] [phone] PCP - General Family Practice 01/13/19 documented as of this encounter
--- OUTSIDE RECORDS SUMMARY | 2025-04-12 11:16 | XMS_ITS | Encounter Summary ---
Author Organization [employer] Address 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 Gender Identity Not on file Sexual [...] PM CDT Narrative 09/19/2008 10:59 PM CDT [facility] [address] [place], [place] [address] Admit Date: 09/19/2008 GAL BEAUCHAMP Sex: F Admit Prov: ER, AUTHORIZED P Date: 1945 Primary Care Prov: PRIETO JOY; CMRN: [id number] BENITA PRIETO Neo SSN: [id number] Room: [facility] Ordering Prov: N/A Accession Number: [id number] Interpretation RIGHT WRIST 2 VIEWS, 09/19/2008 Indication: [...] Procedure Note Isabel Walker MD - 09/19/2008 [address] [place], [place] [address] Admit Date: 09/19/2008 GAL BEAUCHAMP Sex: F Admit Prov: ER, AUTHORIZED P Date: 1945 Primary Care Prov: BENITA PRIETO Larson; CMRN: [id number] BENITA PRIETO Neo SSN: [id number] [facility] Ordering Prov: N/A Interpretation RIGHT [...] PM CDT Narrative 09/19/2008 8:46 PM CDT [place] [address] [place], [place] [address] Admit Date: 09/19/2008 GAL BEAUCHAMP Sex: F Admit Prov: ER, AUTHORIZED P Date: 1945 Primary Care Prov: PRIETO JOY; CMRN: [id number] PRIETO JOY SSN: [id number] Room: [facility] Ordering Prov: N/A Accession Number: [id number] Interpretation RIGHT WRIST 4 VIEWS, 09/19/2008 Indication: [...] Procedure Note Isabel Walker MD - 09/19/2008 [address] [place], [place] [address] Admit Date: 09/19/2008 GAL BEAUCHAMP Sex: F Admit Prov: ER, AUTHORIZED P Date: 1945 Primary Care Prov: PRIETO JOY; CMRN: [id number] PRIETO JOY SSN: [id number] Room: [facility] Ordering Prov: N/A [...] on filedocumented in this encounter Care Teams Clinical Informatics Manager Relationship Specialty Start Date End Date Lesley Sampson MD [address] [place] [address] PCP - General Family Practice 01/13/19 documented as of this encounter
--- OUTSIDE RECORDS SUMMARY | 2025-04-12 11:16 | XMS_ITS | Encounter Summary ---
Author Organization [facility] Address [address] [facility] Attn: Epic Prelude ADT JACK AYALA [phone] Care Team Providers Care Loss Prevention Operations Manager Name Role Phone Lesley Sampson MD Primary Care Provider Encounter Details Date Type Department Care Team (Late st Contact Info) Description 06/07/1995 Outpatient Historical Domenico Morales Social History Tobacco Use Types Packs/Day Years Used Date Smoking Tobacco: Never Assessed Comments Unknown Sex and Gender Information Value Date Recorded Sex Assigned at Not on file Legal Sex Female 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
--- OUTSIDE RECORDS SUMMARY | 2025-04-12 11:16 | XMS_ITS | Encounter Summary ---
Author Organization [employer] Address [address] [place] [address] Care Team Providers Care Refractive Surgeon Name Role Phone Lesley Sampson MD Primary [...] on file Legal Sex Female 5:27 AM PORCELAIN ENAMELING SUPERVISOR Gender Identity Not on file Sexual Orientation Not on file documented as of this encounter Plan of Treatment Not on file documented as of this encounter Visit Diagnoses Diagnosis Screening for malignant neoplasm of the cervix- Primary documented in this encounter Care Teams Refractive Surgeon Relationship Specialty Start Date End Date Lesley Sampson MD [address] [place] [address] PCP - General Family Practice 01/13/19 documented as of this encounter
[2025-04-12 13:03] LABS: Alanine Aminotransferase 16 U/L (6-35); Albumin Level 4.5 g/dL (3.5-5.1); Alkaline Phosphatase 82 U/L (38-126); Anion Gap 11 mmol/L (4-12); Aspartate Amino Transferase 74 U/L (14-36); Bilirubin,Total 0.6 mg/dL (0.2-1.3); Blood Urea Nitrogen 19 mg/dL (7-17); Calcium 9.8 mg/dL (8.4-10.2); Carbon Dioxide 29 mmol/L (22-30); Chloride 99 mmol/L (98-107); Estimated Glomerular Filt Rate 53; Glucose 101 mg/dL (65-110); Potassium 3.9 mmol/L (3.4-5.0); Sodium 139 mmol/L (137-145); Total Protein 8.0 g/dL (6.3-8.2)
[2025-04-12 13:51] LABS: Hemoglobin A1C 6.1 % (<5.7)
== END 2025-04-12 10:08 | disposition home or self-care (01) ==
LOC: ANHGOSHLAB 10:08
PROVIDERS: PCP Family Medicine; Visit Provider Family Medicine
DX: R73.03 Prediabetes (principal); I10 Essential (primary) hypertension
CPT/HCPCS: 36415; 80053; 83036